=== PATIENT | female | born 1960 | race African-American/Black ===

== ENCOUNTER 2017-11-11 10:36 | Emergency (ER) | payer MEDICAID ==
[~2017-11-11] VITALS: Ht 165.1 cm; Wt 78.0 kg
[2017-11-11] MEDS ORDERED: BACITRACIN ZINC OINT UDPKT TOP ONE (12:15)
[2017-11-11] MEDS ORDERED: ACETAMINOPHEN 500MG TABLET PO ONE (12:15)
[2017-11-11] MEDS ORDERED: LIDOCAINE HCL/PF 1% 2ML VIAL INFIL ONE (12:15)
[2017-11-11] MEDS ORDERED: LIDOCAINE HCL/PF 1% 10 MG/ML 5ML VIAL IJ ONE (12:30)
[2017-11-11 14:25] VITALS: BP 138/86
== END 2017-11-11 14:36 | disposition home or self-care (01) ==
LOC: ER 10:36
DX: S61.511A Laceration without foreign body of right wrist, initial encounter (principal); I10 Essential (primary) hypertension; E05.90 Thyrotoxicosis, unspecified without thyrotoxic crisis or storm; W45.8XXA Other foreign body or object entering through skin, initial encounter; Y93.H2 Activity, gardening and landscaping; Y92.017 Garden or yard in single-family (private) house as the place of occurrence of the external cause
CPT/HCPCS: 12001; 73110; 99284; J3490